=== PATIENT | female | born 1990 | race African-American/Black ===

== ENCOUNTER 2022-10-06 17:18 | Emergency (ER) | payer MEDICAID ==
[~2022-10-06] VITALS: Ht 167.6 cm; Wt 57.0 kg
[2022-10-06] MEDS ORDERED: ACETAMINOPHEN 325MG TABLET PO ONE (19:45)
[2022-10-06] MEDS ORDERED: BACITRACIN ZINC OINT UDPKT TOP ONE (19:45)
[2022-10-06] MEDS ORDERED: TETANUS, DIPHTHERIA, PERTUSSIS VAC/PF 0.5ML (>10YR OLD) IM ONE (19:45)
[2022-10-06] MEDS ORDERED: MIDAZOLAM HCL 2 MG/2 ML VIAL IM ONE (20:15)
[2022-10-06 20:22] LABS: BASOPHILS % 0.6 % (0.0-2.0); EOSINOPHILS % 0.1 % (0.0-5.0); HEMATOCRIT. 33.9 % (36.0-48.0); HEMOGLOBIN. 10.7 g/dL (12.0-16.0); LYMPHOCYTES % 11.2 % (20.0-50.0); MEAN CORPUSCULAR HEMOGLOBIN 26.9 pg (28.0-32.0); MEAN CORPUSCULAR VOLUME 85.5 fL (81.0-99.0); MEAN PLATELET VOLUME 10.2 fl (7.4-10.4); MONOCYTES % 5.9 % (2.0-8.0); NEUTROPHILS % 82.2 % (40.0-76.0); PLATELET 241 x1000/uL (130-400); RED BLOOD CELL COUNT 3.96 mill/uL (4.2-5.4); RED CELL DISTRIBUTION WIDTH 20.3 % (11.6-14.6)
[2022-10-06 20:30] LABS: CHLORIDE 110 mEq/L (98-107)
[2022-10-06 20:31] LABS: HCG SCREEN NEGATIVE
[2022-10-06 20:33] LABS: INR 0.9; PROTHROMBIN TIME 10.2 sec (9.6-11.0)
[2022-10-06 20:39] LABS: ETHANOL BLOOD 61 mg/dL
[2022-10-06 20:57] VITALS: BP 121/74
== END 2022-10-06 22:24 ==
LOC: ER 17:18
DX: S61.412A Laceration without foreign body of left hand, initial encounter (principal); Y08.89XA Assault by other specified means, initial encounter; Y93.89 Activity, other specified; Y92.89 Other specified places as the place of occurrence of the external cause; Y99.8 Other external cause status; G89.11 Acute pain due to trauma; F10.129 Alcohol abuse with intoxication, unspecified; Y90.0 Blood alcohol level of less than 20 mg/100 ml
CPT/HCPCS: 36415; 70450; 71045; 71260; 72125; 74177; 80053; 80320; 81025; 84703; 85025; 85610; 85730; 99291; J2250; Z7610; G0480

== ENCOUNTER 2023-01-13 13:18 | Emergency (ER) | payer MEDICAID, OTHER ==
[~2023-01-13] VITALS: Ht 165.1 cm; Wt 56.0 kg
[2023-01-13 13:27] VITALS: BP 139/73; PULSE 89; RESP 20; TEMP 98.4; O2SAT 100
== END 2023-01-13 15:00 | disposition home or self-care (01) ==
LOC: ER 14:05
DX: S13.9XXA Sprain of joints and ligaments of unspecified parts of neck, initial encounter (principal); Z91.013 Allergy to seafood; V89.2XXA Person injured in unspecified motor-vehicle accident, traffic, initial encounter; Y93.89 Activity, other specified; Y92.89 Other specified places as the place of occurrence of the external cause; Y99.8 Other external cause status
CPT/HCPCS: 99281